=== PATIENT | male | born 1970 | race Caucasian/White ===

== ENCOUNTER 2018-01-26 10:51 | Emergency (ER) | payer OTHER, SELFPAY ==
[2018-01-26] VITALS (8 sets, daily range): BP systolic 123–184; BP diastolic 46–105; PULSE 58–78; RESP 12–21; TEMP 36.4–37.2; O2SAT 95–100; BMI 45.6
--- NOTE | 2018-01-26 11:32 | DI.RAD.S_ITS ---
PROCEDURE: XR CHEST 1V INDICATIONS: Chest pain TECHNIQUE: One view of the chest was acquired. COMPARISON: [facility], , CHEST 2 VIEW, 08/21/2010, 9:59. FINDINGS: Surgical changes and devices: None. Lungs and pleura: No pleural effusions or pneumothorax. Lungs are clear. Mediastinum: Mediastinal contours appear normal. Heart size is borderline enlarged. Pulmonary vasculature appears slightly prominent in the upper lobes. No septal lines. Bones and chest wall: No suspicious bony lesions. Overlying soft tissues appear unremarkable. IMPRESSION: 1. Borderline heart size. Possible pulmonary venous congestion. No focal infiltrates. Dictated by: Addy Diallo M.D. on 01/26/2018 at 11:47 Approved by: Addy Diallo M.D. on 01/26/2018 at 11:50
[2018-01-26 11:45] LABS: Alanine Aminotransferase 42 IU/L (21-72); Albumin 4.6 g/dL (3.5-5.0); Albumin Globulin Ratio 1.2 (1.0-2.8); Alkaline Phosphatase 99 U/L (38-126); Aspartate Aminotransferase 36 IU/L (17-59); BUN Creatinine Ratio 24.3 (6-22); Bilirubin Total 0.6 mg/dL (0.2-1.3); Calcium 9.5 mg/dL (8.4-10.2); Creatine Kinase 125 U/L (55-170); Estimated Glomerular Filt Rate > 60.0 mL/min (>60); Glucose 132 mg/dL (70-100); HEMOLYSIS 18 (0-50); Lipase 49 U/L (23-300); Potassium 4.2 mmol/L (3.4-5.1); Sodium 143 mmol/L (137-145); Total Protein 8.6 g/dL (6.3-8.2)
[2018-01-26 11:49] LABS: Add Manual Diff / Slide Review NO; Basophils Percent Auto 0.2 % (0-2); Hemoglobin 16.6 g/dL (13.5-17.5); Lymphocytes Percent Auto 14.1 % (25-40); Mean Corpuscular HGB Conc 35.3 % (30-36); Mean Corpuscular Hemoglobin 31.8 PG (26-34); Mean Corpuscular Volume 90.2 fL (80-100); Monocytes Percent Auto 2.7 % (3-14); Neutrophils Absolute Auto 9300 /uL (3000-5900); Platelet Count 170 X10^3/uL (150-400); Red Blood Cell Count 5.21 X10^6/uL (4.5-5.9); Red Cell Distribution Width 13.6 % (11.6-14.8); White Blood Cell Count 11.2 X10^3/uL (4.5-11.0)
[2018-01-26 11:56] LABS: Troponin I < 0.012 ng/mL (0.01-0.034)
[2018-01-26 12:00] LABS: CKMB % Relative Index 1.6 % (1.5-5.0); Creatine Kinase MB 1.96 ng/mL (<2.37)
[2018-01-26] MEDS: ASPIRIN 81 MG TAB 324 MG PO (12:03)
[2018-01-26] MEDS: SODIUM CHLORIDE 0.9% 1,000 ML 150 ML IV (12:03)
--- NOTE | 2018-01-26 12:10 | ED.CHESTPAIN ---
HPI - Chest Pain <Margy Del Angel PA-C - Last Filed: 01/26/18 21:49> General Chief Complaint: Chest Pain Stated Complaint: CHEST PAIN, SOB, FEELS LIKE VOMITING Time Seen by Provider: 01/26/18 12:10 Source: patient and family Mode of arrival: ambulatory History of Present Illness HPI narrative: This 48-year-old male had onset of constant chest pain around 5:00 a.m. this morning while at rest. He states both arms can feel a little bit tingly at times but nothing persistent. He points to the epigastric and substernal area as source of pain. States he can occasionally feel it a little bit more on the right side or R. mid back area. He states that he later developed nausea but has not had any vomiting. He reported to the nurse that the pain is better sitting up and with belching, but tells me position does not make any difference and belching does not seem to help now. He denies any exacerbating or alleviating features to the pain except stating that water seem to help. He states he does feel short of breath with this pain, but that seems to come and go. He states he feels dizzy which he describes as lightheaded and ???spinning???, but not like the room or he are spinning. He reports some chills and sweats but has not been sick with cough or fever. He reports that his legs are always swollen and these are at baseline. He denies any new pain in the legs or extremities. He denies any changes in diet or activity, but then later states he was leaning over his truck bed yesterday pulling a tire. He states that he is absolutely sure this is not the source of the pain. He has not had anything like this in the past. He denies any abdominal complaints or other symptoms on systems review Related Data Home Medications Medication Instructions Recorded Confirmed allopurinol 300 mg PO DAILY 01/26/18 01/26/18 diltiazem HCl [Cartia XT] 180 mg PO DAILY 01/26/18 01/26/18 losartan 50 mg PO DAILY 01/26/18 01/26/18 Allergies Allergy/AdvReac Type Severity Reaction Status Date / Time No Known Drug Allergies Allergy Verified 01/26/18 12:02 Review of Systems <Margy Del Angel PA-C - Last Filed: 01/26/18 21:49> Review of Systems All systems reviewed & are unremarkable except as noted in HPI and below Exam <BRAD Ramos Last Filed: 01/26/18 21:49> Narrative Exam Narrative: GENERAL APPEARANCE: Patient appears somewhat uncomfortable, in NAD, moving in and out of bed without difficulty HEENT: EOMI, normal oropharynx NECK/THYROID: Neck supple, no JVD. LUNGS: Clear to auscultation bilaterally. HEART: Regular rate and rhythm without murmur, normal S1, S2, no S3 or S4. CHEST: Tender to palpation over the mid to inferior sternum and slightly over the right 12th anterior rib ABDOMEN: Soft, obese, NT, ND, + BS x 4 quadrants EXTREMITIES: No cyanosis, mild symmetric pitting edema bilaterally. No calf tenderness NEUROLOGIC: Alert and oriented, normal speech, gait and coordination. DERMATOLOGIC: No exanthem Initial Vital Signs Initial Vital Signs: Vital Signs Temperature 99 F 01/26/18 11:00 Pulse Rate 78 01/26/18 11:00 Respiratory Rate 01/26/18 11:00 Blood Pressure 176/105 H 01/26/18 11:00 Pulse Oximetry 100 01/26/18 11:00 <Leonard Vences DO - Last Filed: 01/27/18 07:49> Initial Vital Signs Initial Vital Signs: Vital Signs Temperature 99 F 01/26/18 11:00 Pulse Rate 78 01/26/18 11:00 Respiratory Rate 01/26/18 11:00 Blood Pressure 176/105 H 01/26/18 11:00 Pulse Oximetry 100 01/26/18 11:00 Course <BRAD Ramos Last Filed: 01/26/18 21:49> Hospital Course: Patient initially had great improvement in his pain with GI cocktail. Pain did flare again and was resolved with morphine. Prior to departure he felt hungry and had slight discomfort which was resolved after having a snack and some fluids. Later in his stay he revealed that he has been taking omeprazole but has been off of that for 2 or 3 days preceding these symptoms. Reviewed findings of gallstones without clear inflammation, likely that this is related to acid reflux/esophageal spasm. Reviewed findings and heart score (3) with Dr. Vences who agreed reasonable to d/c after 2nd negative Troponin. Reviewed importance of return with patient if feeling worse again as well as close follow-up with his PCP in the next couple of days, and he is agreeable Orders Ordered: Discontinued Medications Aspirin (Aspirin Chew) 324 mg PO NOW ONE Stop: 01/26/18 11:32 Last Admin: 01/26/18 12:03 Dose: 324 mg Al Hydrox/Mg Hydrox/Simethicone 20 ml/ Lidocaine HCl 15 ml 0 ml PO NOW ONE Stop: 01/26/18 12:30 Last Admin: 01/26/18 12:44 Dose: 35 ml Sodium Chloride (Normal Saline 0.9%) 1,000 mls @ 150 mls/hr IV CONT LEROY Last Infusion: 01/26/18 17:08 Dose: 150 mls/hr Admin: 01/26/18 12:03 Dose: 150 mls/hr Morphine Sulfate (Morphine Sulfate) 4 mg IV NOW ONE Stop: 01/26/18 12:30 Last Admin: 01/26/18 12:43 Dose: 4 mg Morphine Sulfate (Morphine Sulfate) 4 mg IV NOW ONE Stop: 01/26/18 13:50 Last Admin: 01/26/18 13:50 Dose: 4 mg Morphine Sulfate (Morphine) 4 mg IV NOW ONE Stop: 01/26/18 13:51 Last Admin: 01/26/18 14:19 Dose: Not Given Ondansetron HCl (Zofran) 4 mg IV NOW ONE Stop: 01/26/18 12:46 Last Admin: 01/26/18 12:45 Dose: 4 mg Pantoprazole Sodium (Protonix) 40 mg IV NOW ONE Stop: 01/26/18 13:55 Last Admin: 01/26/18 13:55 Dose: 40 mg Vital Signs - 8 hr 01/26/18 15:09 01/26/18 15:40 01/26/18 17:08 Temperature 97.6 F Pulse Rate 75 58 L 67 Respiratory Rate 14 16 20 Blood Pressure 141/79 H Blood Pressure [Left Arm] 123/50 H 142/46 H Pulse Oximetry 95 95 96 <Leonard Vences DO - Last Filed: 01/27/18 07:49> Orders Ordered: Discontinued Medications Aspirin (Aspirin Chew) 324 mg PO NOW ONE Stop: 01/26/18 11:32 Last Admin: 01/26/18 12:03 Dose: 324 mg Al Hydrox/Mg Hydrox/Simethicone 20 ml/ Lidocaine HCl 15 ml 0 ml PO NOW ONE Stop: 01/26/18 12:30 Last Admin: 01/26/18 12:44 Dose: 35 ml Sodium Chloride (Normal Saline 0.9%) 1,000 mls @ 150 mls/hr IV CONT LEROY Last Infusion: 01/26/18 17:08 Dose: 150 mls/hr Admin: 01/26/18 12:03 Dose: 150 mls/hr Morphine Sulfate (Morphine Sulfate) 4 mg IV NOW ONE Stop: 01/26/18 12:30 Last Admin: 01/26/18 12:43 Dose: 4 mg Morphine Sulfate (Morphine Sulfate) 4 mg IV NOW ONE Stop: 01/26/18 13:50 Last Admin: 01/26/18 13:50 Dose: 4 mg Morphine Sulfate (Morphine) 4 mg IV NOW ONE Stop: 01/26/18 13:51 Last Admin: 01/26/18 14:19 Dose: Not Given Ondansetron HCl (Zofran) 4 mg IV NOW ONE Stop: 01/26/18 12:46 Last Admin: 01/26/18 12:45 Dose: 4 mg Pantoprazole Sodium (Protonix) 40 mg IV NOW ONE Stop: 01/26/18 13:55 Last Admin: 01/26/18 13:55 Dose: 40 mg Vital Signs - 8 hr 01/26/18 15:09 01/26/18 15:40 01/26/18 17:08 Temperature 97.6 F Pulse Rate 75 58 L 67 Respiratory Rate 14 16 20 Blood Pressure 141/79 H Blood Pressure [Left Arm] 123/50 H 142/46 H Pulse Oximetry 95 95 96 MDM - Chest Pain <Margy Del Angel PA-C - Last Filed: 01/26/18 21:49> Lab Data Attestation: I reviewed the patient's lab results. Result diagrams: 01/26/18 11:36 01/26/18 11:36 Lab Results 01/26/18 01/26/18 01/26/18 Range/Units 11:36 11:36 15:55 WBC 11.2 H (4.5-11.0) X10^3/uL RBC 5.21 (4.5-5.9) X10^6/uL Hgb 16.6 (13.5-17.5) g/dL Hct 47.0 (41-53) % MCV 90.2 (80-100) fL MCH 31.8 (26-34) PG MCHC 35.3 (30-36) % RDW 13.6 (11.6-14.8) % Plt Count 170 (150-400) X10^3/uL Neut % (Auto) 83.0 H (50-75) % Lymph % (Auto) 14.1 L (25-40) % Montgomery % (Auto) 2.7 L (3-14) % Eos % (Auto) 0.0 L (2-4) % Baso % (Auto) 0.2 (0-2) % Neut # (Auto) 9300 H (7707-4606) /uL D-Dimer (<231) ng/mL Sodium 143 (137-145) mmol/L Potassium 4.2 (3.4-5.1) mmol/L Chloride 102.0 (98-107) mmol/L Carbon Dioxide 28.0 (22-32) mmol/L BUN 17.0 (9-20) mg/dL Creatinine 0.70 (0.66-1.25) mg/dL Estimated GFR > 60.0 (>60) mL/min BUN/Creatinine Ratio 24.3 H (6-22) Glucose 132 H (70-100) mg/dL Calcium 9.5 (8.4-10.2) mg/dL Total Bilirubin 0.6 (0.2-1.3) mg/dL AST 36 (17-59) IU/L ALT 42 (21-72) IU/L Alkaline Phosphatase 99 (38-126) U/L Total Creatine Kinase 125 (55-170) U/L CK-MB (CK-2) 1.96 (<2.37) ng/mL CK-MB (CK-2) Rel Index 1.6 (1.5-5.0) % Troponin I < 0.012 < 0.012 (0.01-0.034) ng/mL B-Natriuretic Peptide (<100) Total Protein 8.6 H (6.3-8.2) g/dL Albumin 4.6 (3.5-5.0) g/dL Globulin 4.0 (1.7-4.1) g/dL Albumin/Globulin Ratio 1.2 (1.0-2.8) Lipase 49 (23-300) U/L 01/26/18 01/26/18 Range/Units Unknown Unknown WBC (4.5-11.0) X10^3/uL RBC (4.5-5.9) X10^6/uL Hgb (13.5-17.5) g/dL Hct (41-53) % MCV (80-100) fL MCH (26-34) PG MCHC (30-36) % RDW (11.6-14.8) % Plt Count (150-400) X10^3/uL Neut % (Auto) (50-75) % Lymph % (Auto) (25-40) % Montgomery % (Auto) (3-14) % Eos % (Auto) (2-4) % Baso % (Auto) (0-2) % Neut # (Auto) (3681-8732) /uL D-Dimer < 200 (<231) ng/mL Sodium (137-145) mmol/L Potassium (3.4-5.1) mmol/L Chloride (98-107) mmol/L Carbon Dioxide (22-32) mmol/L BUN (9-20) mg/dL Creatinine (0.66-1.25) mg/dL Estimated GFR (>60) mL/min BUN/Creatinine Ratio (6-22) Glucose (70-100) mg/dL Calcium (8.4-10.2) mg/dL Total Bilirubin (0.2-1.3) mg/dL AST (17-59) IU/L ALT (21-72) IU/L Alkaline Phosphatase (38-126) U/L Total Creatine Kinase (55-170) U/L CK-MB (CK-2) (<2.37) ng/mL CK-MB (CK-2) Rel Index (1.5-5.0) % Troponin I (0.01-0.034) ng/mL B-Natriuretic Peptide 115.0 (<100) Total Protein (6.3-8.2) g/dL Albumin (3.5-5.0) g/dL Globulin (1.7-4.1) g/dL Albumin/Globulin Ratio (1.0-2.8) Lipase (23-300) U/L Imaging Data Chest x-ray: Radiologist's impression: View Report History [address] [address] XRay Report Signed Patient: Abelardo Solares MR#: [id number] : 1970 Acct:[id number] Age/Sex: 48 / M Date of Service: 01/26/18 Loc: ED Accession Number: [id number] Procedure: XR chest 1V Ordering Provider: Leonard Vences D.O. PROCEDURE: XR CHEST 1V INDICATIONS: Chest pain TECHNIQUE: One view of the chest was acquired. COMPARISON: [facility], CHEST 2 VIEW, 08/21/2010, 9:59. FINDINGS: Surgical changes and devices: None. Lungs and pleura: No pleural effusions or pneumothorax. Lungs are clear. Mediastinum: Mediastinal contours appear normal. Heart size is borderline enlarged. Pulmonary vasculature appears slightly prominent in the upper lobes. No septal lines. Bones and chest wall: No suspicious bony lesions. Overlying soft tissues appear unremarkable. IMPRESSION: 1. Borderline heart size. Possible pulmonary venous congestion. No focal infiltrates. Dictated by: Addy Diallo M.D. on 01/26/2018 at 11:47 Approved by: Addy Diallo M.D. on 01/26/2018 at 11:50 US - abdomen: Radiologist's impression: View Report History [address] [address] Ultrasound Report Signed Patient: Abelardo Solares MR#: [id number] : 1970 Acct:[id number] Age/Sex: 48 / M Date of Service: 01/26/18 Loc: ED Accession Number: [id number] Procedure: US abdomen complete Ordering Provider: Margy Del Angel P.A-C PROCEDURE: US ABDOMEN COMPLETE INDICATIONS: epigastric, r. uq pain TECHNIQUE: Real-time scanning was performed of the abdominal and retroperitoneal organs, with image documentation. COMPARISON: None. FINDINGS: Liver: Liver is normal in size and homogeneous in echotexture. Liver has a diffusely increased echotexture which typically represents fatty infiltration; however, finding is nonspecific and other etiologies including hepatic cirrhosis can have a similar appearance. Please correlate with clinical and laboratory findings. Gallbladder: There is a 1.3 cm stone in the fundus of the gallbladder. No gallbladder wall thickening. Gallbladder wall measures 2.0 mm in thickness. No pericholecystic fluid. No sonographic Davalos sign. Biliary ducts: Intrahepatic bile ducts are non-dilated. Extrahepatic bile duct caliber measures 7.0 mm. Normal is 6-7 mm or less in diameter, or 10 mm or less post-cholecystectomy. Pancreas: Visualized portions of the pancreas are sonographically normal. Tail of the pancreas is not visualized due to bowel gas and cannot be evaluated. Spleen: Spleen is mildly enlarged measuring 16.5 cm in long axis. Kidneys: Kidneys are normal in size and echotexture. Right kidney measures 13.4 cm long; left kidney measures 13.5 cm long. No hydronephrosis or nephrolithiasis. No solid masses. Aorta: Not visualized due to bowel gas and cannot be evaluated. Iliacs: Not visualized due to bowel gas and cannot be evaluated. IVC: Not visualized due to bowel gas and cannot be evaluated. Miscellaneous: No free abdominal fluid. IMPRESSION: 1. Cholelithiasis without sonographic evidence of cholecystitis. 2. Echogenic liver. Finding typically represents fatty infiltration; however, finding is nonspecific and correlation with clinical and laboratory findings is recommended to exclude other etiologies including hepatic cirrhosis. 3. Splenomegaly. Dictated by: Mirta Alvarez MD, PhD on 01/26/2018 at 14:20 Approved by: Mirta Alvarez MD, PhD on 01/26/2018 at 14:22 ECG Data Prior ECG tracings: not available for review Interpretation: NSR rate 60, nl axis, no changes on repeat EKG, reviewed with Dr. Vences <Leonard Vences, - Last Filed: 01/27/18 07:49> Lab Data Lab Results 01/26/18 01/26/18 01/26/18 Range/Units 11:36 11:36 15:55 WBC 11.2 H (4.5-11.0) X10^3/uL RBC 5.21 (4.5-5.9) X10^6/uL Hgb 16.6 (13.5-17.5) g/dL Hct 47.0 (41-53) % MCV 90.2 (80-100) fL MCH 31.8 (26-34) PG MCHC 35.3 (30-36) % RDW 13.6 (11.6-14.8) % Plt Count 170 (150-400) X10^3/uL Neut % (Auto) 83.0 H (50-75) % Lymph % (Auto) 14.1 L (25-40) % Montgomery % (Auto) 2.7 L (3-14) % Eos % (Auto) 0.0 L (2-4) % Baso % (Auto) 0.2 (0-2) % Neut # (Auto) 9300 H (0504-5886) /uL D-Dimer (<231) ng/mL Sodium 143 (137-145) mmol/L Potassium 4.2 (3.4-5.1) mmol/L Chloride 102.0 (98-107) mmol/L Carbon Dioxide 28.0 (22-32) mmol/L BUN 17.0 (9-20) mg/dL Creatinine 0.70 (0.66-1.25) mg/dL Estimated GFR > 60.0 (>60) mL/min BUN/Creatinine Ratio 24.3 H (6-22) Glucose 132 H (70-100) mg/dL Calcium 9.5 (8.4-10.2) mg/dL Total Bilirubin 0.6 (0.2-1.3) mg/dL AST 36 (17-59) IU/L ALT 42 (21-72) IU/L Alkaline Phosphatase 99 (38-126) U/L Total Creatine Kinase 125 (55-170) U/L CK-MB (CK-2) 1.96 (<2.37) ng/mL CK-MB (CK-2) Rel Index 1.6 (1.5-5.0) % Troponin I < 0.012 < 0.012 (0.01-0.034) ng/mL B-Natriuretic Peptide (<100) Total Protein 8.6 H (6.3-8.2) g/dL Albumin 4.6 (3.5-5.0) g/dL Globulin 4.0 (1.7-4.1) g/dL Albumin/Globulin Ratio 1.2 (1.0-2.8) Lipase 49 (23-300) U/L 01/26/18 01/26/18 Range/Units Unknown Unknown WBC (4.5-11.0) X10^3/uL RBC (4.5-5.9) X10^6/uL Hgb (13.5-17.5) g/dL Hct (41-53) % MCV (80-100) fL MCH (26-34) PG MCHC (30-36) % RDW (11.6-14.8) % Plt Count (150-400) X10^3/uL Neut % (Auto) (50-75) % Lymph % (Auto) (25-40) % Montgomery % (Auto) (3-14) % Eos % (Auto) (2-4) % Baso % (Auto) (0-2) % Neut # (Auto) (3101-3402) /uL D-Dimer < 200 (<231) ng/mL Sodium (137-145) mmol/L Potassium (3.4-5.1) mmol/L Chloride (98-107) mmol/L Carbon Dioxide (22-32) mmol/L BUN (9-20) mg/dL Creatinine (0.66-1.25) mg/dL Estimated GFR (>60) mL/min BUN/Creatinine Ratio (6-22) Glucose (70-100) mg/dL Calcium (8.4-10.2) mg/dL Total Bilirubin (0.2-1.3) mg/dL AST (17-59) IU/L ALT (21-72) IU/L Alkaline Phosphatase (38-126) U/L Total Creatine Kinase (55-170) U/L CK-MB (CK-2) (<2.37) ng/mL CK-MB (CK-2) Rel Index (1.5-5.0) % Troponin I (0.01-0.034) ng/mL B-Natriuretic Peptide 115.0 (<100) Total Protein (6.3-8.2) g/dL Albumin (3.5-5.0) g/dL Globulin (1.7-4.1) g/dL Albumin/Globulin Ratio (1.0-2.8) Lipase (23-300) U/L Discharge Plan Departure Patient Disposition: Home, Self-Care Clinical Impression: Atypical chest pain Discharge Date/Time: 01/26/18 17:19 Interventions: ED Discharge Assessment Last Done: 01/26/18 17:08 Instructions: DI for Atypical Chest Pain Activity Restrictions/Additional Instructions: The source of your pain today is not exactly clear. It is most likely related to acid reflux and a spasm of the esophagus. You may have some strain of the chest wall as well. You have gallstones but your gallbladder does not appear inflamed, and it is not very likely that this is related to your heart given your pain pattern and test findings today. You should return immediately to the closest ED if you have any worsening symptoms again. Otherwise, start taking your omeprazole twice daily about 45 min prior to meals. Use a liquid antacid such as Gaviscon or Maalox as needed. Eat bland foods and only small amounts at a time for the next couple of days. See your PCP for follow-up within a couple of days Prescriptions: No Action losartan 50 mg Tablet 50 mg PO DAILY RF: 0 diltiazem HCl [Cartia XT] 180 mg Capsule,Extended Release 24hr 180 mg PO DAILY RF: 0 allopurinol 300 mg Tablet 300 mg PO DAILY RF: 0 Referrals: Mani Hayward MD [Non-Staff] - <Leonard Vences DO - Last Filed: 01/27/18 07:49> Cosign ED Attending Levi Attestation: I was available for consultation during this patient's emergency department encounter
--- NOTE | 2018-01-26 12:13 | ED_ITS ---
HPI - Chest Pain <Margy Del Angel PA-C - Last Filed: 01/26/18 21:49> General Chief Complaint: Chest Pain Stated Complaint: CHEST PAIN, SOB, FEELS LIKE VOMITING Time Seen by Provider: 01/26/18 12:10 Source: patient and family Mode of arrival: ambulatory History of Present Illness HPI narrative: This 48-year-old male had onset of constant chest pain around 5: 00 a.m. this morning while at rest. He states both arms can feel a little bit tingly at times but nothing persistent. He points to the epigastric and substernal area as source of pain. States he can occasionally feel it a little bit more on the right side or R. mid back area. He states that he later developed nausea but has not had any vomiting. He reported to the nurse that the pain is better sitting up and with belching, but tells me position does not make any difference and belching does not seem to help now. He denies any exacerbating or alleviating features to the pain except stating that water seem to help. He states he does feel short of breath with this pain, but that seems to come and go. He states he feels dizzy which he describes as lightheaded and ?spinning?, but not like the room or he are spinning. He reports some chills and sweats but has not been sick with cough or fever. He reports that his legs are always swollen and these are at baseline. He denies any new pain in the legs or extremities. He denies any changes in diet or activity, but then later states he was leaning over his truck bed yesterday pulling a tire. He states that he is absolutely sure this is not the source of the pain. He has not had anything like this in the past. He denies any abdominal complaints or other symptoms on systems review Related Data Home Medications Medication Instructions Recorded Confirmed allopurinol 300 mg PO DAILY 01/26/18 01/26/18 diltiazem HCl [Cartia XT] 180 mg PO DAILY 01/26/18 01/26/18 losartan 50 mg PO DAILY 01/26/18 01/26/18 Allergies Allergy/AdvReac Type Severity Reaction Status Date / Time No Known Drug Allergies Allergy Verified 01/26/18 12:02 Review of Systems <Margy Del Angel PA-C - Last Filed: 01/26/18 21:49> Review of Systems All systems reviewed & are unremarkable except as noted in HPI and below Exam <Margy Del Angel PA-C - Last Filed: 01/26/18 21:49> Narrative Exam Narrative: GENERAL APPEARANCE: Patient appears somewhat uncomfortable, in NAD, moving in and out of bed without difficulty HEENT: EOMI, normal oropharynx NECK/THYROID: Neck supple, no JVD. LUNGS: Clear to auscultation bilaterally. HEART: Regular rate and rhythm without murmur, normal S1, S2, no S3 or S4. CHEST: Tender to palpation over the mid to inferior sternum and slightly over the right 12th anterior rib ABDOMEN: Soft, obese, NT, ND, + BS x 4 quadrants EXTREMITIES: No cyanosis, mild symmetric pitting edema bilaterally. No calf tenderness NEUROLOGIC: Alert and oriented, normal speech, gait and coordination. DERMATOLOGIC: No exanthem Initial Vital Signs Initial Vital Signs: Vital Signs Temperature 99 F 01/26/18 11:00 Pulse Rate 78 01/26/18 11:00 Respiratory Rate 01/26/18 11:00 Blood Pressure 176/105 H 01/26/18 11:00 Pulse Oximetry 100 01/26/18 11:00 <Leonard Vences DO - Last Filed: 01/27/18 07:49> Initial Vital Signs Initial Vital Signs: Vital Signs Temperature 99 F 01/26/18 11:00 Pulse Rate 78 01/26/18 11:00 Respiratory Rate 01/26/18 11:00 Blood Pressure 176/105 H 01/26/18 11:00 Pulse Oximetry 100 01/26/18 11:00 Course <Margy Del Angel PA-C - Last Filed: 01/26/18 21:49> Hospital Course: Patient initially had great improvement in his pain with GI cocktail. Pain did flare again and was resolved with morphine. Prior to departure he felt hungry and had slight discomfort which was resolved after having a snack and some fluids. Later in his stay he revealed that he has been taking omeprazole but has been off of that for 2 or 3 days preceding these symptoms. Reviewed findings of gallstones without clear inflammation, likely that this is related to acid reflux/esophageal spasm. Reviewed findings and heart score (3) with Dr. Vences who agreed reasonable to d/c after 2nd negative Troponin. Reviewed importance of return with patient if feeling worse again as well as close follow -up with his PCP in the next couple of days, and he is agreeable Orders Ordered: Discontinued Medications Aspirin (Aspirin Chew) 324 mg PO NOW ONE Stop: 01/26/18 11:32 Last Admin: 01/26/18 12:03 Dose: 324 mg Al Hydrox/Mg Hydrox/Simethicone 20 ml/ Lidocaine HCl 15 ml 0 ml PO NOW ONE Stop: 01/26/18 12:30 Last Admin: 01/26/18 12:44 Dose: 35 ml Sodium Chloride (Normal Saline 0.9%) 1,000 mls @ 150 mls/hr IV CONT LEROY Last Infusion: 01/26/18 17:08 Dose: 150 mls/hr Admin: 01/26/18 12:03 Dose: 150 mls/hr Morphine Sulfate (Morphine Sulfate) 4 mg IV NOW ONE Stop: 01/26/18 12:30 Last Admin: 01/26/18 12:43 Dose: 4 mg Morphine Sulfate (Morphine Sulfate) 4 mg IV NOW ONE Stop: 01/26/18 13:50 Last Admin: 01/26/18 13:50 Dose: 4 mg Morphine Sulfate (Morphine) 4 mg IV NOW ONE Stop: 01/26/18 13:51 Last Admin: 01/26/18 14:19 Dose: Not Given Ondansetron HCl (Zofran) 4 mg IV NOW ONE Stop: 01/26/18 12:46 Last Admin: 01/26/18 12:45 Dose: 4 mg Pantoprazole Sodium (Protonix) 40 mg IV NOW ONE Stop: 01/26/18 13:55 Last Admin: 01/26/18 13:55 Dose: 40 mg Vital Signs - 8 hr 01/26/18 15:09 01/26/18 15:40 01/26/18 17:08 Temperature 97.6 F Pulse Rate 75 58 L 67 Respiratory Rate 14 16 20 Blood Pressure 141/79 H Blood Pressure [Left Arm] 123/50 H 142/46 H Pulse Oximetry 95 95 96 <Leonard Vences DO - Last Filed: 01/27/18 07:49> Orders Ordered: Discontinued Medications Aspirin (Aspirin Chew) 324 mg PO NOW ONE Stop: 01/26/18 11:32 Last Admin: 01/26/18 12:03 Dose: 324 mg Al Hydrox/Mg Hydrox/Simethicone 20 ml/ Lidocaine HCl 15 ml 0 ml PO NOW ONE Stop: 01/26/18 12:30 Last Admin: 01/26/18 12:44 Dose: 35 ml Sodium Chloride (Normal Saline 0.9%) 1,000 mls @ 150 mls/hr IV CONT LEROY Last Infusion: 01/26/18 17:08 Dose: 150 mls/hr Admin: 01/26/18 12:03 Dose: 150 mls/hr Morphine Sulfate (Morphine Sulfate) 4 mg IV NOW ONE Stop: 01/26/18 12:30 Last Admin: 01/26/18 12:43 Dose: 4 mg Morphine Sulfate (Morphine Sulfate) 4 mg IV NOW ONE Stop: 01/26/18 13:50 Last Admin: 01/26/18 13:50 Dose: 4 mg Morphine Sulfate (Morphine) 4 mg IV NOW ONE Stop: 01/26/18 13:51 Last Admin: 01/26/18 14:19 Dose: Not Given Ondansetron HCl (Zofran) 4 mg IV NOW ONE Stop: 01/26/18 12:46 Last Admin: 01/26/18 12:45 Dose: 4 mg Pantoprazole Sodium (Protonix) 40 mg IV NOW ONE Stop: 01/26/18 13:55 Last Admin: 01/26/18 13:55 Dose: 40 mg Vital Signs - 8 hr 01/26/18 15:09 01/26/18 15:40 01/26/18 17:08 Temperature 97.6 F Pulse Rate 75 58 L 67 Respiratory Rate 14 16 20 Blood Pressure 141/79 H Blood Pressure [Left Arm] 123/50 H 142/46 H Pulse Oximetry 95 95 96 MDM - Chest Pain <Margy Del Angel PA-C - Last Filed: 01/26/18 21:49> Lab Data Attestation: I reviewed the patient's lab results. Result diagrams: 01/26/18 11:36 01/26/18 11:36 Lab Results 01/26/18 01/26/18 01/26/18 Range/Units 11:36 11:36 15:55 WBC 11.2 H (4.5-11.0) X10^3/uL RBC 5.21 (4.5-5.9) X10^6/uL Hgb 16.6 (13.5-17.5) g/dL Hct 47.0 (41-53) % MCV 90.2 (80-100) fL MCH 31.8 (26-34) PG MCHC 35.3 (30-36) % RDW 13.6 (11.6-14.8) % Plt Count 170 (150-400) X10^3/uL Neut % (Auto) 83.0 H (50-75) % Lymph % (Auto) 14.1 L (25-40) % [place]oto % (Auto) 2.7 L (3-14) % Eos % (Auto) 0.0 L (2-4) % Baso % (Auto) 0.2 (0-2) % Neut # (Auto) 9300 H (0453-4553) /uL D-Dimer (<231) ng/mL Sodium 143 (137-145) mmol/L Potassium 4.2 (3.4-5.1) mmol/L Chloride 102.0 (98-107) mmol/L Carbon Dioxide 28.0 (22-32) mmol/L BUN 17.0 (9-20) mg/dL Creatinine 0.70 (0.66-1.25) mg/dL Estimated GFR > 60.0 (>60) mL/min BUN/Creatinine Ratio 24.3 H (6-22) Glucose 132 H (70-100) mg/dL Calcium 9.5 (8.4-10.2) mg/dL Total Bilirubin 0.6 (0.2-1.3) mg/dL AST 36 (17-59) IU/L ALT 42 (21-72) IU/L Alkaline Phosphatase 99 (38-126) U/L Total Creatine Kinase 125 (55-170) U/L CK-MB (CK-2) 1.96 (<2.37) ng/mL CK-MB (CK-2) Rel Index 1.6 (1.5-5.0) % Troponin I < 0.012 < 0.012 (0.01-0.034) ng/mL B-Natriuretic Peptide (<100) Total Protein 8.6 H (6.3-8.2) g/dL Albumin 4.6 (3.5-5.0) g/dL Globulin 4.0 (1.7-4.1) g/dL Albumin/Globulin Ratio 1.2 (1.0-2.8) Lipase 49 (23-300) U/L 01/26/18 01/26/18 Range/Units Unknown Unknown WBC (4.5-11.0) X10^3/uL RBC (4.5-5.9) X10^6/uL Hgb (13.5-17.5) g/dL Hct (41-53) % MCV (80-100) fL MCH (26-34) PG MCHC (30-36) % RDW (11.6-14.8) % Plt Count (150-400) X10^3/uL Neut % (Auto) (50-75) % Lymph % (Auto) (25-40) % [place] % (Auto) (3-14) % Eos % (Auto) (2-4) % Baso % (Auto) (0-2) % Neut # (Auto) (7623-2638) /uL D-Dimer < 200 (<231) ng/mL Sodium (137-145) mmol/L Potassium (3.4-5.1) mmol/L Chloride (98-107) mmol/L Carbon Dioxide (22-32) mmol/L BUN (9-20) mg/dL Creatinine (0.66-1.25) mg/dL Estimated GFR (>60) mL/min BUN/Creatinine Ratio (6-22) Glucose (70-100) mg/dL Calcium (8.4-10.2) mg/dL Total Bilirubin (0.2-1.3) mg/dL AST (17-59) IU/L ALT (21-72) IU/L Alkaline Phosphatase (38-126) U/L Total Creatine Kinase (55-170) U/L CK-MB (CK-2) (<2.37) ng/mL CK-MB (CK-2) Rel Index (1.5-5.0) % Troponin I (0.01-0.034) ng/mL B-Natriuretic Peptide 115.0 (<100) Total Protein (6.3-8.2) g/dL Albumin (3.5-5.0) g/dL Globulin (1.7-4.1) g/dL Albumin/Globulin Ratio (1.0-2.8) Lipase (23-300) U/L Imaging Data Chest x-ray: Radiologist's impression: View Report History [address] [address] XRay Report Signed Patient: Abelardo Solares MR#: [id number] : 1970 Acct:[id number] Age/Sex: 48 / M Date of Service: 01/26/18 Loc: ED Accession Number: [id number] Procedure: XR chest 1V Ordering Provider: Leonard Vences D.O. PROCEDURE: XR CHEST 1V INDICATIONS: Chest pain TECHNIQUE: One view of the chest was acquired. COMPARISON: [facility], CHEST 2 VIEW, 08/21/2010, 9:59. FINDINGS: Surgical changes and devices: None. Lungs and pleura: No pleural effusions or pneumothorax. Lungs are clear. Mediastinum: Mediastinal contours appear normal. Heart size is borderline enlarged. Pulmonary vasculature appears slightly prominent in the upper lobes. No septal lines. Bones and chest wall: No suspicious bony lesions. Overlying soft tissues appear unremarkable. IMPRESSION: 1. Borderline heart size. Possible pulmonary venous congestion. No focal infiltrates. Dictated by: Addy Diallo M.D. on 01/26/2018 at 11:47 Approved by: Addy Diallo M.D. on 01/26/2018 at 11:50 US - abdomen: Radiologist's impression: View Report History [address] [address] Ultrasound Report Signed Patient: Abelardo Solares MR#: [id number] : 1970 Acct:[id number] Age/Sex: 48 / M Date of Service: 01/26/18 Loc: ED Accession Number: [id number] Procedure: US abdomen complete Ordering Provider: Margy Del Angel P.A-C PROCEDURE: US ABDOMEN COMPLETE INDICATIONS: epigastric, r. uq pain TECHNIQUE: Real-time scanning was performed of the abdominal and retroperitoneal organs, with image documentation. COMPARISON: None. FINDINGS: Liver: Liver is normal in size and homogeneous in echotexture. Liver has a diffusely increased echotexture which typically represents fatty infiltration; however, finding is nonspecific and other etiologies including hepatic cirrhosis can have a similar appearance. Please correlate with clinical and laboratory findings. Gallbladder: There is a 1.3 cm stone in the fundus of the gallbladder. No gallbladder wall thickening. Gallbladder wall measures 2.0 mm in thickness. No pericholecystic fluid. No sonographic Davalos sign. Biliary ducts: Intrahepatic bile ducts are non-dilated. Extrahepatic bile duct caliber measures 7.0 mm. Normal is 6-7 mm or less in diameter, or 10 mm or less post-cholecystectomy. Pancreas: Visualized portions of the pancreas are sonographically normal. Tail of the pancreas is not visualized due to bowel gas and cannot be evaluated. Spleen: Spleen is mildly enlarged measuring 16.5 cm in long axis. Kidneys: Kidneys are normal in size and echotexture. Right kidney measures 13.4 cm long; left kidney measures 13.5 cm long. No hydronephrosis or nephrolithiasis. No solid masses. Aorta: Not visualized due to bowel gas and cannot be evaluated. Iliacs: Not visualized due to bowel gas and cannot be evaluated. IVC: Not visualized due to bowel gas and cannot be evaluated. Miscellaneous: No free abdominal fluid. IMPRESSION: 1. Cholelithiasis without sonographic evidence of cholecystitis. 2. Echogenic liver. Finding typically represents fatty infiltration; however, finding is nonspecific and correlation with clinical and laboratory findings is recommended to exclude other etiologies including hepatic cirrhosis. 3. Splenomegaly. Dictated by: Mirta Alvarez MD, PhD on 01/26/2018 at 14:20 Approved by: Mirta Alvarez MD, PhD on 01/26/2018 at 14:22 ECG Data Prior ECG tracings: not available for review Interpretation: NSR rate 60, nl axis, no changes on repeat EKG, reviewed with Dr. Vences <Leonard Vences, DO - Last Filed: 01/27/18 07:49> Lab Data Lab Results 01/26/18 01/26/18 01/26/18 Range/Units 11:36 11:36 15:55 WBC 11.2 H (4.5-11.0) X10^3/uL RBC 5.21 (4.5-5.9) X10^6/uL Hgb 16.6 (13.5-17.5) g/dL Hct 47.0 (41-53) % MCV 90.2 (80-100) fL MCH 31.8 (26-34) PG MCHC 35.3 (30-36) % RDW 13.6 (11.6-14.8) % Plt Count 170 (150-400) X10^3/uL Neut % (Auto) 83.0 H (50-75) % Lymph % (Auto) 14.1 L (25-40) % [place] % (Auto) 2.7 L (3-14) % Eos % (Auto) 0.0 L (2-4) % Baso % (Auto) 0.2 (0-2) % Neut # (Auto) 9300 H (6375-5041) /uL D-Dimer (<231) ng/mL Sodium 143 (137-145) mmol/L Potassium 4.2 (3.4-5.1) mmol/L Chloride 102.0 (98-107) mmol/L Carbon Dioxide 28.0 (22-32) mmol/L BUN 17.0 (9-20) mg/dL Creatinine 0.70 (0.66-1.25) mg/dL Estimated GFR > 60.0 (>60) mL/min BUN/Creatinine Ratio 24.3 H (6-22) Glucose 132 H (70-100) mg/dL Calcium 9.5 (8.4-10.2) mg/dL Total Bilirubin 0.6 (0.2-1.3) mg/dL AST 36 (17-59) IU/L ALT 42 (21-72) IU/L Alkaline Phosphatase 99 (38-126) U/L Total Creatine Kinase 125 (55-170) U/L CK-MB (CK-2) 1.96 (<2.37) ng/mL CK-MB (CK-2) Rel Index 1.6 (1.5-5.0) % Troponin I < 0.012 < 0.012 (0.01-0.034) ng/mL B-Natriuretic Peptide (<100) Total Protein 8.6 H (6.3-8.2) g/dL Albumin 4.6 (3.5-5.0) g/dL Globulin 4.0 (1.7-4.1) g/dL Albumin/Globulin Ratio 1.2 (1.0-2.8) Lipase 49 (23-300) U/L 01/26/18 01/26/18 Range/Units Unknown Unknown WBC (4.5-11.0) X10^3/uL RBC (4.5-5.9) X10^6/uL Hgb (13.5-17.5) g/dL Hct (41-53) % MCV (80-100) fL MCH (26-34) PG MCHC (30-36) % RDW (11.6-14.8) % Plt Count (150-400) X10^3/uL Neut % (Auto) (50-75) % Lymph % (Auto) (25-40) % [place] % (Auto) (3-14) % Eos % (Auto) (2-4) % Baso % (Auto) (0-2) % Neut # (Auto) (0680-3241) /uL D-Dimer < 200 (<231) ng/mL Sodium (137-145) mmol/L Potassium (3.4-5.1) mmol/L Chloride (98-107) mmol/L Carbon Dioxide (22-32) mmol/L BUN (9-20) mg/dL Creatinine (0.66-1.25) mg/dL Estimated GFR (>60) mL/min BUN/Creatinine Ratio (6-22) Glucose (70-100) mg/dL Calcium (8.4-10.2) mg/dL Total Bilirubin (0.2-1.3) mg/dL AST (17-59) IU/L ALT (21-72) IU/L Alkaline Phosphatase (38-126) U/L Total Creatine Kinase (55-170) U/L CK-MB (CK-2) (<2.37) ng/mL CK-MB (CK-2) Rel Index (1.5-5.0) % Troponin I (0.01-0.034) ng/mL B-Natriuretic Peptide 115.0 (<100) Total Protein (6.3-8.2) g/dL Albumin (3.5-5.0) g/dL Globulin (1.7-4.1) g/dL Albumin/Globulin Ratio (1.0-2.8) Lipase (23-300) U/L Discharge Plan Departure Patient Disposition: Home, Self-Care Clinical Impression: Atypical chest pain Discharge Date/Time: 01/26/18 17:19 Interventions: ED Discharge Assessment Last Done: 01/26/18 17:08 Instructions: DI for Atypical Chest Pain Activity Restrictions/Additional Instructions: The source of your pain today is not exactly clear. It is most likely related to acid reflux and a spasm of the esophagus. You may have some strain of the chest wall as well. You have gallstones but your gallbladder does not appear inflamed, and it is not very likely that this is related to your heart given your pain pattern and test findings today. You should return immediately to the closest ED if you have any worsening symptoms again. Otherwise, start taking your omeprazole twice daily about 45 min prior to meals. Use a liquid antacid such as Gaviscon or Maalox as needed. Eat bland foods and only small amounts at a time for the next couple of days. See your PCP for follow-up within a couple of days Prescriptions: No Action losartan 50 mg Tablet 50 mg PO DAILY RF: 0 diltiazem HCl [Cartia XT] 180 mg Capsule,Extended Release 24hr 180 mg PO DAILY RF: 0 allopurinol 300 mg Tablet 300 mg PO DAILY RF: 0 Referrals: Mani Hayward MD [Non-Staff] - <Leonard Vences DO - Last Filed: 01/27/18 07:49> [facility] Att[facility]: I was available for consultation during this patient's emergency department encounter
[2018-01-26] MEDS: MORPHINE 5 MG/ML INJ 4 MG IV ×2 (12:43→13:50)
[2018-01-26] MEDS: MAG HYDROX/ALUMINUM/SIMETH SUS 20 ML, LIDOCAINE VISCOUS 2% 15 ML PO (12:44)
[2018-01-26] MEDS: ONDANSETRON 4 MG/2 ML INJ IV (12:45)
[2018-01-26 12:51] LABS: D Dimer < 200 ng/mL (<231)
--- NOTE | 2018-01-26 13:54 | DI.US.S_ITS ---
PROCEDURE: US ABDOMEN COMPLETE INDICATIONS: epigastric, r. uq pain TECHNIQUE: Real-time scanning was performed of the abdominal and retroperitoneal organs, with image documentation. COMPARISON: None. FINDINGS: Liver: Liver is normal in size and homogeneous in echotexture. Liver has a diffusely increased echotexture which typically represents fatty infiltration; however, finding is nonspecific and other etiologies including hepatic cirrhosis can have a similar appearance. Please correlate with clinical and laboratory findings. Gallbladder: There is a 1.3 cm stone in the fundus of the gallbladder. No gallbladder wall thickening. Gallbladder wall measures 2.0 mm in thickness. No pericholecystic fluid. No sonographic Davalos sign. Biliary ducts: Intrahepatic bile ducts are non-dilated. Extrahepatic bile duct caliber measures 7.0 mm. Normal is 6-7 mm or less in diameter, or 10 mm or less post-cholecystectomy. Pancreas: Visualized portions of the pancreas are sonographically normal. Tail of the pancreas is not visualized due to bowel gas and cannot be evaluated. Spleen: Spleen is mildly enlarged measuring 16.5 cm in long axis. Kidneys: Kidneys are normal in size and echotexture. Right kidney measures 13.4 cm long; left kidney measures 13.5 cm long. No hydronephrosis or nephrolithiasis. No solid masses. Aorta: Not visualized due to bowel gas and cannot be evaluated. Iliacs: Not visualized due to bowel gas and cannot be evaluated. IVC: Not visualized due to bowel gas and cannot be evaluated. Miscellaneous: No free abdominal fluid. IMPRESSION: 1. Cholelithiasis without sonographic evidence of cholecystitis. 2. Echogenic liver. Finding typically represents fatty infiltration; however, finding is nonspecific and correlation with clinical and laboratory findings is recommended to exclude other etiologies including hepatic cirrhosis. 3. Splenomegaly. Dictated by: Mirta Alvarez MD, PhD on 01/26/2018 at 14:20 Approved by: Mirta Alvarez MD, PhD on 01/26/2018 at 14:22
[2018-01-26] MEDS: PANTOPRAZOLE 40 MG VIAL IV (13:55)
[2018-01-26 16:45] LABS: Troponin I < 0.012 ng/mL (0.01-0.034)
== END 2018-01-26 17:19 | disposition home or self-care (01) ==
PROVIDERS: Emergency Medicine; Emergency Provider Internal Medicine; PCP Family Medicine
DX: R07.89 Other chest pain (principal)
CPT/HCPCS: 36415; 36591; 71045; 76700; 80053; 82550; 82553; 83690; 83880; 84484; 85025; 85379; 93005; 96361; 96374; 96375; 99283; 99285; C9113; J2270; J2405